=== PATIENT | male | born 1965 | race Caucasian/White ===

== ENCOUNTER 2020-01-14 16:32 | Inpatient (IN) | payer OTHER, SELFPAY ==
--- NOTE | ~2020-01-14 | XR_ITS ---
EXAMINATION: XR chest 2V EXAM DATE: 01/14/2020 16:58 INDICATION: Midsternal chest pain. TECHNIQUE: Frontal and lateral projections of the chest obtained and reviewed. There is no prior zo dy for comparison. FINDINGS: The lungs are clear. There are no pleural effusions. The cardiomediastinal silhouette is within normal limits. There is no pneumothorax suspected. The bones and soft tissues are unremarkab le. IMPRESSION: No acute cardiopulmonary findings. Reviewed, dictated and finalized at location A.
[2020-01-14 16:29] VITALS: BP 151/69; PULSE 94; RESP 16; O2SAT 98
--- NOTE | 2020-01-14 16:38 | ECG_ITS ---
Measurements Intervals [place] Rate: 105 P: [place]: 0 QRS: 42 QRSD: 93 T: 31 QT: 337 QTc: 447 Interpretive Statements SINUS RHYTHM ATRIAL COUPLETS AND FREQUENT VENTRICULAR PREMATURE COMPLEXES ABNORMAL ECG Electronically Signed On 01-14-2020 16:41:13 CDT by Jhony Nolasco D.O.
[2020-01-14 16:48] LABS: Basophils Percent Auto 0.3 % (0.2-1.2); Eosinophils Absolute Auto 0.2 K/mm3 (0-0.3); Eosinophils Percent Auto 2.3 % (0-4.4); Hematocrit 44.4 % (42.0-52.0); Hemoglobin 14.8 g/dL (14.0-18.0); Immature Granulocyte Absolute 0.01 K/mm3 (0.00-0.031); Immature Granulocyte Percent A 0.1 % (0-0.5); Lymphocytes Absolute Auto 1.49 K/mm3 (0.9-3.2); Lymphocytes Percent Auto 21.9 % (18.3-44.2); Mean Corpuscular HGB Conc 33.3 g/dl (32-36); Mean Corpuscular Hemoglobin 29.2 pg (26-34); Mean Corpuscular Volume 87.7 fl (80-100); Mean Platelet Volume 10.3 fl (7.4-10.4); Monocytes Absolute Auto 0.5 K/mm3 (0.1-0.6); Monocytes Percent Auto 6.9 % (2.6-8.5); Neutrophils Absolute Auto 4.7 K/mm3 (1.3-6.7); Neutrophils Percent Auto 68.5 % (45.5-73.1); Platelet Count Result 212 k/mm3 (150-375); Red Blood Count 5.06 M/mm3 (4.6-6.20); Red Cell Distribution Width 12.4 % (11.5-14.5); White Blood Count 6.8 K/mm3 (4.5-10.0)
[2020-01-14 16:57] LABS: INR 0.9; Prothrombin Time 12.2 Seconds (11.1-14.7)
[2020-01-14 16:58] LABS: Partial Thromboplastin Time 25.3 SECONDS (22.3-36.8)
[2020-01-14 17:00] LABS: Blood Urea Nitrogen 18 mg/dL (9-20); Calcium 9.2 mg/dL (8.4-10.2); Carbon Dioxide 23 mmol/L (22-30); Chloride 101 mmol/L (98-107); Estimated CRCL calculation 113 ml/min; Estimated Glomerular Filt Rate > 60; Glucose 416 mg/dL (75-110); Potassium 4.4 mmol/L (3.4-5.0); Sodium 133 mmol/L (137-145)
[2020-01-14 17:11] LABS: Troponin I < 0.012 ng/mL (0.000-0.034)
--- NOTE | 2020-01-14 17:57 | ED.CHESTPAIN ---
HPI - Chest Pain General Chief Complaint: Chest Pain Stated Complaint: Chest Pain Time Seen by Provider: 01/14/20 16:39 History of Present Illness HPI narrative: Patient presents with his for chest pain that started an hour before presentation. He points to the right sternum as the location. He had an episode of this the day prior for it lasted about an hour. He has never had chest pain other than these 2 episodes before. He is a known insulin-dependent diabetic and has hypertension. 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 He has not been sick in the last couple weeks. His appetite is good, bowels are moving, and he has nocturia 1-2 per evening. He had 4 chewable baby aspirin, and nitroglycerin in route. That brought his chest pain way down. He had no shortness of breath diaphoresis or nausea. He has no history of heart disease. Onset: during rest Pain location: substernal Pain radiation: none Severity: moderate Relieving factors: nitroglycerin Treatment prior to arrival: aspirin and nitroglycerin Risk Factors Coronary artery disease risk factors: diabetes and hypertension Related Data Home Medications Medication Instructions Recorded Confirmed Humalog U-100 Insulin See Protocol ACHS 01/14/20 insulin glargine [Lantus U-100 30 unit SUBCUT HS 01/14/20 01/14/20 Insulin] levothyroxine 175 mcg PO DAILY 01/14/20 01/14/20 lisinopril 10 mg PO HS 01/14/20 01/14/20 ropinirole 4 - 5 mg PO DAILY 01/14/20 01/14/20 rosuvastatin 10 mg PO DAILY 01/14/20 01/14/20 sertraline 100 mg PO DAILY 01/14/20 01/14/20 zolpidem 12.5 mg PO HS 01/14/20 01/14/20 Allergies Allergy/AdvReac Type Severity Reaction Status Date / Time No Known Allergies Allergy Verified 01/14/20 16:34 Review of Systems Review of Systems: Narrative: CONSTITUTIONAL: Denies fever, chills, or sweats. EYES: Denies visual changes, redness, or discharge. ENT: Denies rhinorrhea, congestion, sore throat, or otalgia. CARDIOVASCULAR: Denie, palpitations, or edema. RESPIRATORY: Denies cough or dyspnea. GASTROINTESTINAL: Denies abdominal pain, nausea, vomiting, or diarrhea. GENITOURINARY: Denies dysuria or hematuria. SKIN: Denies rash or itching. MUSCULOSKELETAL: Denies back pain, joint pain, or myalgia. NEUROLOGIC: Denies headache, numbness, or weakness. PSYCHIATRIC: Denies anxiety or depression. [facility] Past Medical History Medical History (Updated 01/14/20 @ 22:27 by Laura Merritt MD) Depression Diabetes Dupuytren's contracture of left hand With removal of nodules. Hyperglycemia Hyperlipidemia Hypothyroidism Insulin dependent diabetes mellitus Type 1 diagnosed when he was 34 years old Knee arthropathy Obstructive sleep apnea Patient does not use CPAP machine and did have an oral device at 1 time but does not use it now. Restless leg syndrome Surgical History Surgical History (Updated 01/14/20 @ 21:13 by Stacey Nuñez NP) History of arthroscopic surgery of elbow Bilaterally History of arthroscopic surgery of shoulder Bilaterally S/P arthroscopic surgery of right knee Family History Family History Other Adopted Social History Social History (Updated 01/14/20 @ 21:16 by Stacey Nuñez NP) Social History: The patient is to Henry and he has no biological children. He has 1 stepchild He smokes 1-2 cigars a day. No alcohol marijuana or illicit drugs. He is adopted so he does not know his family history. He desires to be a full code. He works for [employer]. Years smoked: 30 Smoking status: Current every day smoker Tobacco type: cigars Second hand tobacco smoke exposure: No Alcohol intake: never Substance use: never Living arrangements: with family Occupation/Education: occupation Gender identity (if verbalized by the patient): Male Spiritual care concerns: Yes Agree to blood products: Yes Exam Narrative: Exam Narrati
[2020-01-14 18:33] LABS: Glucose Point of Care 300 (65-105)
[2020-01-14] MEDS: INSULIN HUMAN REGULAR (*BKC) 100 UNITS/ML 10 UNITS SUB-Q (18:38)
[2020-01-14 19:17] VITALS: BP 116/68; PULSE 68; RESP 12; O2SAT 98
[2020-01-14] MEDS: HEPARIN SODIUM 5,000 UNITS/ML VIAL 5000 UNITS IV PUSH (19:25)
[2020-01-14 19:50] LABS: Glucose Point of Care 235 (65-105)
[2020-01-14 20:19] VITALS: BP 113/66; PULSE 65; RESP 18; O2SAT 99
[2020-01-14 20:35] VITALS: BP 131/58; PULSE 110; RESP 20; TEMP 36.8; O2SAT 100; BMI 28.0
--- NOTE | 2020-01-14 21:01 | PM.IMHP ---
H&P: HPI History of Present Illness Chief complaint: a fib RVR Narrative: Ken Adamson is a 54 year old male who has had no prior history of any heart disease or arrhythmias. The patient has diabetes type 1 and hypertension. Yesterday the patient developed chest pain on his way to work. The patient drove himself to work and had this chest pain that lasted for about an hour. It did not radiate anywhere and resolved on its own. The patient did not take any medications to resolve it. He was not diaphoretic and did not have any nausea vomiting or diarrhea. No fever or chills. No cough. 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 The patient developed chest pain again today while driving to work. He did not take any medication to resolve it and was still having chest pain when he went to work. He called the ambulance and his met him here. He does not take a daily aspirin. The patient was given 4 chewable baby aspirin and nitroglycerin EN route here. He stated that his chest pain lasted about 6 hours today. Patient was found to be in AFib with RVR. He was given Cardizem push and then a drip. Cardiology has been consulted. Heparin drip has been started. Patient converted and is still on a Cardizem drip. Troponins negative so far. Patient has occasional PVCs. Was also given insulin Humulin regular subcu was 416 and is down to 235 now. As no acute cardiopulmonary findings. Date of service 01/14/2020 Review of Systems Review of Systems: All systems reviewed & are unremarkable except as noted in HPI and below Constitutional: Constitutional: Reports as per HPI and Reports no additional constitutional complaints Eyes: Eyes: Reports as per HPI and Reports no additional eye complaints ENT: Reports system reviewed and no additional complaints, except as documented and Reports Normal hearing present Cardiovascular: Cardiovascular: Reports no additional cardiovascular complaints Respiratory: Respiratory: Reports no additional respiratory complaints and Reports no additional respiratory complaints Gastrointestinal: Gastrointestinal: Reports as per HPI and Reports no additional gastrointestinal complaints Musculoskeletal: Musculoskeletal: Reports no additional musculoskeletal complaints Integumentary/Breasts: Skin/Breast: Reports system reviewed and no additional complaints, except as docu and Reports as per HPI Neurologic: Reports system reviewed and no additional complaints, except as documented, Reports as per HPI and Reports Normal hearing present Psychiatric: Psychiatric: Reports no additional psychiatric complaints and Reports as per HPI Endocrine: Endocrine: Reports no additional endocrine complaints Hematologic/Lymphatic: Hematologic/Lymphatic: Reports no additional hematologic/lymphatic complaints Allergic/Immunologic: Allergic/Immunologic: Reports no additional allergic/immunologic complaints PMFSH Past Medical History Medical History (Updated 01/14/20 @ 21:24 by Stacey Nuñez NP) Depression Diabetes Dupuytren's contracture of left hand With removal of nodules. Hyperglycemia Hyperlipidemia Hypothyroidism Insulin dependent diabetes mellitus Type 1 diagnosed when he was 34 years old Knee arthropathy Obstructive sleep apnea Patient does not use CPAP machine and did have an oral device at 1 time but does not use it now. Restless leg syndrome Surgical History Surgical History (Updated 01/14/20 @ 21:13 by Stacey Nuñez NP) History of arthroscopic surgery of elbow Bilaterally History of arthroscopic surgery of shoulder Bilaterally S/P arthroscopic surgery of right knee Family History Family History Other Adopted Social History Social History (Updated 01/14/20 @ 21:16 by Stacey Nuñez NP) Social History: The patient is to Henry and he has no biological children. He has 1 stepchild He smokes 1-2 cigars a day.
--- NOTE | 2020-01-14 21:12 | ADMGEN ---
This patient, Ken Adamson, was admitted to IMU Room 201-01 on 01/14/2020 at 2035. Patient/family oriented to hospital policies and general routines including ID bracelet, bed and alarms, visiting hours, pain management, procedures, bathroom and other care routines, personal items, smoking policy, room service/diet, and visiting hours. Valuables list has been completed. Information on how to activate the Rapid Response Team has been discussed. Patient/Family are encouraged to report perceived risks to care and to ask questions if they do not understand what they are told or what they should do.
[2020-01-14] MEDS: HEPARIN SOD/D5W 100 UNITS/ML 25,000 UNITS/250 ML BAG 10 UNITS IV CONT (21:16)
[2020-01-14 22:00] VITALS: PULSE 90
[2020-01-14 22:05] LABS: Troponin I < 0.012 ng/mL (0.000-0.034)
[2020-01-14 23:09] LABS: Glucose Point of Care 127 (65-105)
[2020-01-14] MEDS: INSULIN GLARGINE (*BKC) 100 UNITS/ML 15 UNITS SUB-Q (23:10)
[2020-01-14] MEDS: lisinopriL 10 MG TABLET PO (23:11)
[2020-01-14] MEDS: DILTIAZEM HCL 30 MG TABLET PO (23:12)
[2020-01-15] VITALS (9 sets, daily range): BP systolic 93–122; BP diastolic 46–60; PULSE 62–88; RESP 16–18; TEMP 36.1–36.9; O2SAT 98–100
--- NOTE | 2020-01-15 | EST_ITS ---
Patient Info Name: Ken Adamson Age: 54 years : 1965 Gender: Male Ht: 72 in Wt: 215 lbs BSA: 2.25 m2 HR: 66 bpm BP: 124 / 86 mmHg Exam Date: 01/15/2020 11:04 AM Exam Location: [facility] Patient Status: Inpatient Admit Date: 01/14/2020 Staff Ordering Physician: Han Lopez MD Bindery Machine Tender: Liyah Beckman RDCS Attending Provider: Ajit Moreno MD Exercise Technologist: Rusty Cid RDCS, RT Exercise Physician: Scar Powers MD Exam Type: CA stress echo Study Info Indications I10 - Essential (primary) hypertension R07.89 - Other chest pain Treadmill exercise stress echocardiogram is performed. Summary 1. Left ventricular systolic function is normal with an estimated ejection fraction of 5560 % at rest. 2. Normal augmentation of all wall segments without evidence of ischemia with stress. 3. Negative stress echocardiogram for ischemia by wall motion analysis. Stress Echo Findings Left Ventricle Left ventricular systolic function is normal with an estimated ejection fraction of 5560 % at rest. Normal augmentation of all wall segments without evidence of ischemia with stress. Ventricles Name Value Normal LV Fractional Shortening/Ejection Fraction 2D/MM Visually Estimated EF 5,560 % 52-72 Protocol: [place] Stress ECG Details Stage: REST Duration (min): --- Speed (mph): 0.0 Grade (%): 0 HR (bpm): 66 SBP (mmHg): 124 DBP (mmHg): 86 METS: --- Stage: REST Duration (min): --- Speed (mph): 0.0 Grade (%): 0 HR (bpm): 77 SBP (mmHg): 124 DBP (mmHg): 86 METS: --- Stage: STAGE 1 Duration (min): 1 min : 0 sec Speed (mph): 1.7 Grade (%): 10 HR (bpm): 89 SBP (mmHg): 124 DBP (mmHg): 86 METS: --- Stage: STAGE 1 Duration (min): 2 min : 0 sec Speed (mph): 1.7 Grade (%): 10 HR (bpm): 94 SBP (mmHg): 124 DBP (mmHg): 86 METS: --- Stage: STAGE 1 Duration (min): 3 min : 0 sec Speed (mph): 1.7 Grade (%): 10 HR (bpm): 98 SBP (mmHg): 119 DBP (mmHg): 45 METS: --- Stage: STAGE 2 Duration (min): 1 min : 0 sec Speed (mph): 2.5 Grade (%): 12 HR (bpm): 102 SBP (mmHg): 119 DBP (mmHg): 45 METS: --- Stage: STAGE 2 Duration (min): 2 min : 0 sec Speed (mph): 2.5 Grade (%): 12 HR (bpm): 107 SBP (mmHg): 146 DBP (mmHg): 54 METS: --- Stage: STAGE 2 Duration (min): 3 min : 0 sec Speed (mph): 2.5 Grade (%): 12 HR (bpm): 112 SBP (mmHg): 146 DBP (mmHg): 54 METS: --- Stage: STAGE 3 Duration (min): 1 min : 0 sec Speed (mph): 3.4 Grade (%): 14 HR (bpm): 120 SBP (mmHg): 167 DBP (mmHg): 103 METS: --- Stage: STAGE 3 Duration (min):
[2020-01-15] MEDS: ZOLPIDEM TARTRATE 5 MG TABLET 10 MG PO (00:18)
[2020-01-15 01:04] LABS: Troponin I < 0.012 ng/mL (0.000-0.034)
[2020-01-15 03:26] LABS: Basophils Percent Auto 0.3 % (0.2-1.2); Eosinophils Absolute Auto 0.2 K/mm3 (0-0.3); Eosinophils Percent Auto 3.3 % (0-4.4); Hematocrit 41.1 % (42.0-52.0); Hemoglobin 13.8 g/dL (14.0-18.0); Immature Granulocyte Absolute 0.01 K/mm3 (0.00-0.031); Immature Granulocyte Percent A 0.2 % (0-0.5); Lymphocytes Absolute Auto 2.31 K/mm3 (0.9-3.2); Lymphocytes Percent Auto 39.9 % (18.3-44.2); Mean Corpuscular HGB Conc 33.6 g/dl (32-36); Mean Corpuscular Hemoglobin 29.4 pg (26-34); Mean Corpuscular Volume 87.4 fl (80-100); Monocytes Absolute Auto 0.4 K/mm3 (0.1-0.6); Monocytes Percent Auto 6.9 % (2.6-8.5); Neutrophils Absolute Auto 2.9 K/mm3 (1.3-6.7); Neutrophils Percent Auto 49.4 % (45.5-73.1); Platelet Count Result 195 k/mm3 (150-375); Red Cell Distribution Width 12.6 % (11.5-14.5); White Blood Count 5.8 K/mm3 (4.5-10.0)
[2020-01-15 03:38] LABS: Partial Thromboplastin Time 50.1 SECONDS (22.3-36.8)
[2020-01-15 03:39] LABS: Alanine Aminotransferase 25 U/L (4-50); Albumin Level 3.8 g/dL (3.5-5.1); Alkaline Phosphatase 55 U/L (38-126); Aspartate Amino Transferase 22 U/L (17-59); Bilirubin,Total 0.5 mg/dL (0.2-1.3); Blood Urea Nitrogen 21 mg/dL (9-20); Calcium 8.8 mg/dL (8.4-10.2); Carbon Dioxide 30 mmol/L (22-30); Chloride 104 mmol/L (98-107); Estimated CRCL calculation 100 ml/min; Estimated Glomerular Filt Rate > 60; Glucose 113 mg/dL (75-110); Magnesium 1.9 mg/dL (1.6-2.3); Potassium 4.1 mmol/L (3.4-5.0); Sodium 138 mmol/L (137-145)
[2020-01-15 03:42] LABS: Hemoglobin A1C 8.5 % (<5.7)
[2020-01-15] MEDS: HEPARIN SODIUM 5,000 UNITS/ML VIAL 4000 UNITS IV PUSH (04:04)
[2020-01-15 06:06] LABS: Free T4 Free Thyroxine Reflex 1.12 ng/dL (0.78-2.19)
[2020-01-15] MEDS: LEVOTHYROXINE SODIUM 75 MCG TABLET PO (06:26)
[2020-01-15] MEDS: LEVOTHYROXINE SODIUM 100 MCG TABLET PO (06:26)
[2020-01-15] MEDS: DILTIAZEM HCL 30 MG TABLET PO ×2 (06:27→12:24)
[2020-01-15 07:53] LABS: Glucose Point of Care 113 (65-105)
[2020-01-15] MEDS: ROSUVASTATIN 10 MG TABLET PO (09:07)
[2020-01-15 10:33] LABS: Partial Thromboplastin Time 126.6 SECONDS (22.3-36.8)
--- NOTE | 2020-01-15 11:46 | PM.CNCAR ---
Assessment and Plan Assessment and plan (1) Diabetes: Qualifiers: Diabetes mellitus complication status: without complication Diabetes mellitus type: type 1 Qualified Code(s): E10.9 - Type 1 diabetes mellitus without complications Code(s): E11.9 - Type 2 diabetes mellitus without complications Status: Acute Assessment and Plan: not optimally controlled (HgbA1c 8.5, glucose> 400 yesterday) management per PC (2) Chest pain: Code(s): R07.9 - Chest pain, unspecified Status: Acute Assessment and Plan: Appears atypical 3 sets of CE negative no acute EKG changes pt underwent stress test today which was negative cont medical management and risk factor modification (3) Hyperlipidemia: Code(s): E78.5 - Hyperlipidemia, unspecified Status: Chronic Assessment and Plan: cont statin (4) Arrhythmia, atrial: Code(s): I49.8 - Other specified cardiac arrhythmias Status: Acute Assessment and Plan: EKG was reviewed pt remains in NSR yesterday had episode of NSR with frequent PACs which resolved probably due to dyselectrolitemia in setting of poorly controlled diabetes cont Cardizem (5) Hypertension: Code(s): I10 - Essential (primary) hypertension Status: Acute Assessment and Plan: pt has good physical tolerance with hypertensive response to exercise will cont Cardizem 120 QD switch Lisinopril for Cozaar low Na diet Pt appears stable from cardiac standpoint Disposition per PC fu in clinic in one week History of Present Illness History of Present Illness Consult date/time: 01/15/20 Mr. Adamson is a pleasant 54 y/o WM with PMH of DM, HTN, HLD, YANELY, restless leg syndrome who presented last [facility] to [facility] since he had some chest discomfort. According to pt and ER note pt experienced yesterday chest discomofort on R side of chest. he denied palpitations or syncopal episodes. States that walk a lot a work and noticed some DAVILA. he wears N95 mask for protection. pt had initial evaluation in ER and thought to have AFIB. Was started on Cardizem and Heparin drip. Subsequently admitted to telemetry floor. pt had CE done as well as EKG which were negative for acute changes. He states that never had cardiac problems. Has stress test 15 yrs ago which was negative. pt was seen and examined, chart was reviewed, case d/w pt's nurse. Reason For Visit: a fib RVR Review of Systems Review of Systems: All systems reviewed & are unremarkable except as noted in HPI and below Constitutional: Constitutional: Reports as per HPI Eyes: Eyes: Reports as per HPI ENT: Reports system reviewed and no additional complaints, except as documented and Reports as per HPI Cardiovascular: Cardiovascular: Reports as per HPI Respiratory: Respiratory: Reports as per HPI Gastrointestinal: Gastrointestinal: Reports as per HPI Genitourinary: Genitourinary: Reports as per HPI Musculoskeletal: Musculoskeletal: Reports as per HPI [facility] Past Medical History Medical History (Updated 01/15/20 @ 11:52 by Scar Powers MD) Depression Diabetes Dupuytren's contracture of left hand With removal of nodules. Hyperglycemia Hyperlipidemia Hypothyroidism Insulin dependent diabetes mellitus Type 1 diagnosed when he was 34 years old Knee arthropathy Obstructive sleep apnea Patient does not use CPAP machine and did have an oral device at 1 time but does not use it now. Restless leg syndrome Surgical History Surgical History (Updated 01/14/20 @ 21:13 by Stacey Nuñez NP) History of arthroscopic surgery of elbow Bilaterally History of arthroscopic surgery of shoulder Bilaterally S/P arthroscopic surgery of right knee Family History Family History Other Adopted Social History Social History (Updated 01/14/20 @ 21:16 by Stacey Nuñez NP) Social History: The patient is
[2020-01-15 12:17] LABS: Total Triiodothyronine (T3) 0.94 NG/ML (0.97-1.69)
[2020-01-15] MEDS: MAGNESIUM OXIDE 400 MG TABLET PO (12:37)
[2020-01-15 12:52] LABS: Glucose Point of Care 190 (65-105)
--- NOTE | 2020-01-16 17:11 | PM.DS ---
DS: Diagnosis Admitting Diagnosis Admitting Diagnosis: Chest pain, unspecified Discharge Diagnosis (1) Chest pain: Code(s): R07.9 - Chest pain, unspecified Status: Acute Assessment and Plan: Cardiology has been consulted. troponins were negative. Patient had relief with nitro an aspirin but stress echo revealed no ischemia. (2) Atrial fibrillation with rapid ventricular response: Code(s): I48.91 - Unspecified atrial fibrillation Status: Acute Assessment and Plan: Initially felt to be AFib but on further evaluation by Cardiology there was frequent PACs and sinus rhythm. No anticoagulation needed just ASA (3) Insulin dependent diabetes mellitus: Status: Chronic Assessment and Plan: He has type 1 diabetes and he is routinely on insulin. He is on Lantus at night will do a sliding scale insulin. Continue same at home (4) Hyperlipidemia: Code(s): E78.5 - Hyperlipidemia, unspecified Status: Chronic Assessment and Plan: Continue with rosuvastatin (5) Depression: Code(s): F32.9 - Major depressive disorder, single episode, unspecified Status: Chronic Assessment and Plan: Continue with sertraline (6) Obstructive sleep apnea: Code(s): G47.33 - Obstructive sleep apnea (adult) (pediatric) Status: Chronic Assessment and Plan: Patient said that he had an oral apparatus but stopped using it. (7) Restless leg syndrome: Code(s): G25.81 - Restless legs syndrome Status: Chronic Assessment and Plan: With ropinirole (8) Hypertension: Code(s): I10 - Essential (primary) hypertension Status: Acute Assessment and Plan: Cardiology changed to diltiazem 120 daily with losartan 25 daily (9) Hypothyroidism: Code(s): E03.9 - Hypothyroidism, unspecified Status: Chronic Assessment and Plan: continue with his levothyroxine., TSH 6.8 and may need adjustment of bed by primary care DS: Summary Hospital Course Hospital Course: [age] year old hypertensive diabetic admitted with chest discomfort. Initially was felt be in atrial fibrillation but further evaluation of rhythm strips and EKG revealed only frequent PACs. Troponins were negative and patient underwent stress echo test per Cardiology which revealed no ischemia. Was discharged home on low-dose diltiazem 120 daily with losartan 25 daily to follow-up with cardiology in 1 week. Estimated at ejection fraction at stress echo 55-60% Time Spent with Patient Time attestation: Total time spent providing and/or coordinating discharge services: 35 minutes Exam Narrative: Exam Narrative: Condition on discharge Blood pressure 100/50 pulse is 80 regular saturating 100% on room air Lungs clear CV no murmurs regular Abdomen soft nontender Extremities without edema distal pulses are 2+ Neuro alert pleasant cooperative no focal deficits Discharge Plan Discharge Attending physician on discharge: Art Tian Consulting providers: Han Lopez Discharging Clinician: Art Tian Patient Disposition: Home, Self-Care Activity: as tolerated Diet: diabetic and low sodium Patient Instructions: Antibiotic Form, Diltiazem (By mouth), Losartan (By mouth), How to Stop Smoking (DC) Stand Alone Forms: General Discharge Information Follow-up/Referrals: Scar Powers MD [Physician] - 1 Week Discharge Medications: New aspirin 81 mg Tablet,Delayed Release (Dr/Ec) 81 mg PO QAM Qty: 30 RF: 0 diltiazem HCl 120 mg Capsule,Extended Release 24 Hr 120 mg PO QAM Qty: 30 RF: 0 losartan 25 mg Tablet 25 mg PO QAM Qty: 30 RF: 0 Continued levothyroxine 175 mcg Tablet 175 mcg PO DAILY RF: 0 ropinirole 1 mg Tablet 4 - 5 mg PO DAILY RF: 0 Lantus U-100 Insulin 100 unit/mL Solution 30 unit SUBCUT HS RF: 0 sertraline 100 mg Tablet 100 mg PO DAILY RF: 0 zolpidem 12.5 mg
== END 2020-01-15 13:55 | disposition home or self-care (01) | DRG 309 ==
LOC: ANHED 19:23 → ANHIMU 21:14
PROVIDERS: Nurse Practitioner; Specialist; Admitting Provider Family Medicine; Emergency Provider Emergency Medicine; Visit Provider Internal Medicine
DX: I48.91 Unspecified atrial fibrillation (principal); E87.1 Hypo-osmolality and hyponatremia; E78.5 Hyperlipidemia, unspecified; F32.9 Major depressive disorder, single episode, unspecified; G47.33 Obstructive sleep apnea (adult) (pediatric); G25.81 Restless legs syndrome; E03.9 Hypothyroidism, unspecified; I10 Essential (primary) hypertension; E10.65 Type 1 diabetes mellitus with hyperglycemia; M12.9 Arthropathy, unspecified
CPT/HCPCS: 36415; 71046; 80048; 80053; 82948; 83036; 83735; 84439; 84443; 84480; 84484; 85025; 85610; 85730; 93005; 93351; 96365; 96366; 96375; 99291; A9270; J1644; J1815

== ENCOUNTER 2020-01-18 13:42 | Emergency (ER) | payer OTHER, SELFPAY ==
--- NOTE | ~2020-01-18 | XR_ITS ---
EXAMINATION: XR chest 2V DATE: 01/18/2020 14:18 INDICATION: Chest pain. Atrial fibrillation. TECHNIQUE: Frontal and lateral views of the chest were obtained. COMPARISON: Chest 2 views 01/14/2020 FINDINGS: The chest demonstrates clear lungs without pneumonia, pleural effusion, or pneumothorax. Th e heart size is normal. IMPRESSION: 1. No acute cardiopulmonary disease. Reviewed, dictated and finalized at location A.
--- NOTE | 2020-01-18 13:43 | ECG_ITS ---
Measurements Intervals [place] Rate: 82 P: 51 OR: 168 QRS: 30 QRSD: 86 T: 33 QT: 367 QTc: 431 Interpretive Statements SINUS RHYTHM BASELINE ARTIFACT- I, II, III, AVR, AVL, AVF BORDERLINE ECG Electronically Signed On 01-18-2020 14:06:46 CDT by Jhony Nolasco D.O.
[2020-01-18 13:46] VITALS: BP 160/94; PULSE 83; RESP 13; TEMP 36.6; O2SAT 100
[2020-01-18 14:02] LABS: Basophils Percent Auto 0.4 % (0.2-1.2); Eosinophils Absolute Auto 0.1 K/mm3 (0-0.3); Eosinophils Percent Auto 2.7 % (0-4.4); Hematocrit 42.2 % (42.0-52.0); Hemoglobin 14.2 g/dL (14.0-18.0); Immature Granulocyte Absolute 0.01 K/mm3 (0.00-0.031); Immature Granulocyte Percent A 0.2 % (0-0.5); Lymphocytes Absolute Auto 1.16 K/mm3 (0.9-3.2); Lymphocytes Percent Auto 22.5 % (18.3-44.2); Mean Corpuscular HGB Conc 33.6 g/dl (32-36); Mean Corpuscular Hemoglobin 29.5 pg (26-34); Mean Corpuscular Volume 87.6 fl (80-100); Mean Platelet Volume 10.3 fl (7.4-10.4); Monocytes Absolute Auto 0.3 K/mm3 (0.1-0.6); Monocytes Percent Auto 6.2 % (2.6-8.5); Neutrophils Absolute Auto 3.5 K/mm3 (1.3-6.7); Platelet Count Result 204 k/mm3 (150-375); Red Blood Count 4.82 M/mm3 (4.6-6.20); Red Cell Distribution Width 12.4 % (11.5-14.5); White Blood Count 5.2 K/mm3 (4.5-10.0)
[2020-01-18 14:11] LABS: INR 0.9; Partial Thromboplastin Time 24.4 SECONDS (22.3-36.8); Prothrombin Time 12.1 Seconds (11.1-14.7)
--- NOTE | 2020-01-18 14:13 | ED.CHESTPAIN ---
HPI - Chest Pain General Chief Complaint: Chest Pain Stated Complaint: AFIB Time Seen by Provider: 01/18/20 13:57 History of Present Illness HPI narrative: Patient presents for intermittent chest pain and palpitations with shortness of breath. He was diagnosed last week for the first time with A. fib rapid ventricular rate. He was admitted at the time on a diltiazem drip. Since he has been home he has intermittent episodes of shortness of breath either at rest, or after cutting grass. Episodes last minutes to quarter of an hour. Some have chest pain midsternal, mild. He has no cough fever or chills. He was discharged on diltiazem for rate, and aspirin for blood thinning. MD complaint: chest pain Onset (ago): day(s) Timing of current episode: episodic Prior episodes: Yes Onset: during rest and during exertion Pain location: substernal Pain radiation: none Severity: mild Quality: dull Relieving factors: rest Exacerbating factors: exertion Context: new medications Associated symptoms: dyspnea and palpitations Treatment prior to arrival: none Risk Factors Coronary artery disease risk factors: diabetes, smoking history, hyperlipidemia and hypertension Related Data Home Medications Medication Instructions Recorded Confirmed Humalog U-100 Insulin See Rx Instructions .ROUTE .COMPLEX 01/14/20 01/14/20 Lantus U-100 Insulin 30 unit SUBCUT HS 01/14/20 01/14/20 levothyroxine 175 mcg PO DAILY 01/14/20 01/14/20 ropinirole 4 - 5 mg PO DAILY 01/14/20 01/14/20 rosuvastatin 10 mg PO DAILY 01/14/20 01/14/20 sertraline 100 mg PO DAILY 01/14/20 01/14/20 zolpidem 12.5 mg PO HS 01/14/20 01/14/20 Allergies Allergy/AdvReac Type Severity Reaction Status Date / Time No Known Allergies Allergy Verified 01/14/20 16:34 Review of Systems Review of Systems: Narrative: CONSTITUTIONAL: Denies fever, chills, or sweats. EYES: Denies visual changes, redness, or discharge. ENT: Denies rhinorrhea, congestion, sore throat, or otalgia. CARDIOVASCULAR: Denies edema. RESPIRATORY: Denies cough GASTROINTESTINAL: Denies abdominal pain, nausea, vomiting, or diarrhea. GENITOURINARY: Denies dysuria or hematuria. SKIN: Denies rash or itching. MUSCULOSKELETAL: Denies back pain, joint pain, or myalgia. NEUROLOGIC: Denies headache, numbness, or weakness. PSYCHIATRIC: Denies anxiety or depression. All systems reviewed & are unremarkable except as noted in HPI and below PMFSH Past Medical History Medical History Depression Diabetes Dupuytren's contracture of left hand With removal of nodules. Hyperglycemia Hyperlipidemia Hypothyroidism Insulin dependent diabetes mellitus Type 1 diagnosed when he was 34 years old Knee arthropathy Obstructive sleep apnea Patient does not use CPAP machine and did have an oral device at 1 time but does not use it now. Restless leg syndrome Surgical History Surgical History History of arthroscopic surgery of elbow Bilaterally History of arthroscopic surgery of shoulder Bilaterally S/P arthroscopic surgery of right knee Social History Social History Social History: The patient is to Henry and he has no biological children. He has 1 stepchild He smokes 1-2 cigars a day. No alcohol marijuana or illicit drugs. He is adopted so he does not know his family history. He desires to be a full code. He works for [employer]. Years smoked: 30 Smoking status: Current every day smoker Tobacco type: cigars Second hand tobacco smoke exposure: No Alcohol intake: never Substance use: never Gender identity (if verbalized by the patient): Male Spiritual care concerns: Yes Agree to blood products: Yes Exam Narrative: Exam Narrative: GENERAL: Well-appearing, well-nourished, and in no acute distress.Long curved mustache. HEAD: Normocepha
[2020-01-18 14:14] LABS: Blood Urea Nitrogen 17 mg/dL (9-20); Calcium 9.6 mg/dL (8.4-10.2); Carbon Dioxide 30 mmol/L (22-30); Chloride 97 mmol/L (98-107); Estimated CRCL calculation 113 ml/min; Estimated Glomerular Filt Rate > 60; Glucose 414 mg/dL (75-110); Sodium 133 mmol/L (137-145)
[2020-01-18 14:25] LABS: Troponin I < 0.012 ng/mL (0.000-0.034)
[2020-01-18 14:27] LABS: Potassium 4.7 mmol/L (3.4-5.0)
[2020-01-18 14:39] LABS: Alveolar/Arterial O2 Gradient 20.5 mmHg; Base Excess ABG 0.6 mEq/l (+/-2.0); Fractional Inspired Oxygen 21 %; HCO3 ABG 24.3 mEq/l (22.0-26.0); Oxygen Content ABG 18.2 %vol (16.0-22.0); Oxyhemoglobin 95.5 % THb (90.0-100.0); PCO2 ABG 35.8 mmHg (35.0-45.0); PO2 ABG 86.4 mmHg (80.0-100.0); PO2 FiO2 Ratio Arterial Blood 4.11 %; Site Drawn RIGHT RADIAL; Total Hemoglobin 13.5 g/dL (12.0-18.0); pH ABG 7.449 (7.350-7.450)
[2020-01-18 14:40] LABS: Device ROOM AIR; Modified Allen's Test Pass
[2020-01-18 15:04] VITALS: BP 136/68; PULSE 77; RESP 26; O2SAT 98
[2020-01-18 19:03] LABS: Glucose Point of Care 405 (65-105)
== END 2020-01-18 15:05 | disposition home or self-care (01) ==
PROVIDERS: Emergency Medicine; Emergency Provider Emergency Medicine
DX: I48.91 Unspecified atrial fibrillation (principal); R00.2 Palpitations; E10.65 Type 1 diabetes mellitus with hyperglycemia; F32.9 Major depressive disorder, single episode, unspecified; E78.5 Hyperlipidemia, unspecified; E03.9 Hypothyroidism, unspecified; G47.33 Obstructive sleep apnea (adult) (pediatric); G25.81 Restless legs syndrome; F17.290 Nicotine dependence, other tobacco product, uncomplicated; R94.31 Abnormal electrocardiogram [ECG] [EKG]; Z79.4 Long term (current) use of insulin
CPT/HCPCS: 36415; 36600; 71046; 80048; 82805; 84484; 85025; 85610; 85730; 93005; 99284

== ENCOUNTER 2020-01-19 14:23 | Emergency (ER) | payer OTHER, SELFPAY ==
--- NOTE | ~2020-01-19 | XR_ITS ---
EXAMINATION: XR chest 2V 01/19/2020 14:58 INDICATION: Bilateral breast pain PROCEDURE: 2 view chest COMPARISON: 01/18/2020 FINDINGS: The lungs are clear. The cardiomediastinal silhouette is within normal limits. There are no pleural effusions. There is no pneumothorax suspected. IMPRESSION: 1: NO ACUTE CARDIOPULMONARY DISEASE. Reviewed, dictated and finalized at location A.
[2020-01-19 14:29] VITALS: PULSE 81; RESP 17; TEMP 36.6; O2SAT 100
--- NOTE | 2020-01-19 14:29 | ECG_ITS ---
Measurements Intervals [place] Rate: 79 P: [place]: 0 QRS: 41 QRSD: 89 T: 38 QT: 377 QTc: 433 Interpretive Statements SINUS RHYTHM VENTRICULAR COUPLET AND VENTRICULAR BIGEMINY ABNORMAL ECG Electronically Signed On 01-19-2020 15:57:05 CDT by Jhony Nolasco D.O.
[2020-01-19 14:32] VITALS: PULSE 81
--- NOTE | 2020-01-19 14:39 | ED.GENADULT ---
HPI - General Adult General Chief complaint: Chest Pain Stated complaint: chest pain, sob Time Seen by Provider: 01/19/20 14:25 Source: patient Mode of arrival: ambulatory Limitations: no limitations History of Present Illness HPI narrative: Patient is a 54-year-old male with a history of atrial fibrillation, anticoagulated on aspirin, who presents for evaluation of chest pain and shortness of breath. Patient reports onset of chest pain approximately 1 hour ago while the patient was sitting down. Patient states chest pain is over the right side of his chest, no radiation of the pain to the back, jaw or shoulder. Patient reports associated lightheadedness and dizziness as well as palpitations. No nausea, vomiting. No back pain, no ripping or tearing sensation to the flank. Patient reports dyspnea with exertion. He denies cough, rhinorrhea. Patient has been compliant with his medications. He follows with Dr. Powers, cardiology in [place]. Related Data Home Medications Medication Instructions Recorded Confirmed Humalog U-100 Insulin See Rx Instructions .ROUTE .COMPLEX 01/14/20 01/14/20 Lantus U-100 Insulin 30 unit SUBCUT HS 01/14/20 01/14/20 levothyroxine 175 mcg PO DAILY 01/14/20 01/14/20 ropinirole 4 - 5 mg PO DAILY 01/14/20 01/14/20 rosuvastatin 10 mg PO DAILY 01/14/20 01/14/20 sertraline 100 mg PO DAILY 01/14/20 01/14/20 zolpidem 12.5 mg PO HS 01/14/20 01/14/20 Allergies Allergy/AdvReac Type Severity Reaction Status Date / Time No Known Allergies Allergy Verified 01/19/20 14:32 Review of Systems Review of Systems: Narrative: CONSTITUTIONAL: Denies fever, chills, or sweats. EYES: Denies visual changes, redness, or discharge. ENT: Denies rhinorrhea, congestion, sore throat, or otalgia. CARDIOVASCULAR: Reports chest pain, palpitations, no lower extremity edema RESPIRATORY: Denies cough, reports shortness of breath GASTROINTESTINAL: Denies abdominal pain, nausea, vomiting, or diarrhea. GENITOURINARY: Denies dysuria or hematuria. SKIN: Denies rash or itching. MUSCULOSKELETAL: Denies back pain, joint pain, or myalgia. NEUROLOGIC: Denies headache, numbness, or weakness. PMFSH Past Medical History Medical History Depression Diabetes Dupuytren's contracture of left hand With removal of nodules. Hyperglycemia Hyperlipidemia Hypothyroidism Insulin dependent diabetes mellitus Type 1 diagnosed when he was 34 years old Knee arthropathy Obstructive sleep apnea Patient does not use CPAP machine and did have an oral device at 1 time but does not use it now. Restless leg syndrome Surgical History Surgical History History of arthroscopic surgery of elbow Bilaterally History of arthroscopic surgery of shoulder Bilaterally S/P arthroscopic surgery of right knee Family History Family History Other Adopted Social History Social History Social History: The patient is to [facility] and he has no biological children. He has 1 stepchild He smokes 1-2 cigars a day. No alcohol marijuana or illicit drugs. He is adopted so he does not know his family history. He desires to be a full code. He works for [employer]. Years smoked: 30 Smoking status: Current every day smoker Tobacco type: cigars Second hand tobacco smoke exposure: No Alcohol intake: never Substance use: never Gender identity (if verbalized by the patient): Male Spiritual care concerns: Yes Agree to blood products: Yes Exam Narrative: Exam Narrative: GENERAL: Awake, alert, conversant HEAD: Normocephalic, atraumatic. EYES: PERRLA and EOMI. ENT: Nares clear, no rhinorrhea or epistaxis. Mucous membranes moist. NECK: Supple. CHEST: Mild chest wall tenderness over the left chest wall. No respirato
[2020-01-19 14:43] LABS: Basophils Percent Auto 0.6 % (0.2-1.2); Eosinophils Absolute Auto 0.2 K/mm3 (0-0.3); Eosinophils Percent Auto 3.3 % (0-4.4); Hemoglobin 15.6 g/dL (14.0-18.0); Immature Granulocyte Absolute 0.01 K/mm3 (0.00-0.031); Immature Granulocyte Percent A 0.1 % (0-0.5); Lymphocytes Absolute Auto 1.81 K/mm3 (0.9-3.2); Lymphocytes Percent Auto 27.1 % (18.3-44.2); Mean Corpuscular HGB Conc 33.9 g/dl (32-36); Mean Corpuscular Hemoglobin 29.6 pg (26-34); Mean Corpuscular Volume 87.3 fl (80-100); Mean Platelet Volume 10.3 fl (7.4-10.4); Monocytes Absolute Auto 0.5 K/mm3 (0.1-0.6); Monocytes Percent Auto 6.9 % (2.6-8.5); Neutrophils Absolute Auto 4.1 K/mm3 (1.3-6.7); Platelet Count Result 241 k/mm3 (150-375); Red Blood Count 5.27 M/mm3 (4.6-6.20); Red Cell Distribution Width 12.5 % (11.5-14.5); White Blood Count 6.7 K/mm3 (4.5-10.0)
[2020-01-19 14:50] LABS: INR 0.9; Prothrombin Time 11.9 Seconds (11.1-14.7)
[2020-01-19 14:51] LABS: Partial Thromboplastin Time 26.1 SECONDS (22.3-36.8)
[2020-01-19] MEDS: ASPIRIN 81 MG CHEWABLE TABLET 324 MG PO (14:56)
[2020-01-19 14:57] VITALS: BP 156/86; PULSE 76; RESP 14; O2SAT 96
[2020-01-19 15:03] LABS: Troponin I < 0.012 ng/mL (0.000-0.034)
[2020-01-19 15:16] LABS: Carbon Dioxide 30 mmol/L (22-30); Estimated CRCL calculation 100 ml/min; Estimated Glomerular Filt Rate > 60
[2020-01-19 15:24] LABS: Blood Urea Nitrogen 18 mg/dL (9-20); Calcium 9.7 mg/dL (8.4-10.2); Chloride 101 mmol/L (98-107); Glucose 112 mg/dL (75-110); Potassium 3.8 mmol/L (3.4-5.0); Sodium 137 mmol/L (137-145)
[2020-01-19 15:27] LABS: D Dimer 0.27 ug/mL (<0.48)
[2020-01-19 15:29] LABS: NT Pro B Type Natriuretic Pept 44 PG/ML (5-100)
[2020-01-19 18:07] LABS: Troponin I < 0.012 ng/mL (0.000-0.034)
--- NOTE | 2020-01-19 18:34 | PC.NURSE ---
Morphine, Zofran, IV fluids not given. Due to IT error, no orders crossed on EHR or to MAR. ED staff unaware of IT issue, EDP was unaware to verbalized order to RN for medication administration. No doses required at time of discharge for patient.
[2020-01-19 18:36] VITALS: BP 126/88; PULSE 93; RESP 18; O2SAT 99
== END 2020-01-19 18:37 | disposition home or self-care (01) ==
PROVIDERS: Emergency Provider Emergency Medicine
DX: R07.89 Other chest pain (principal); I48.91 Unspecified atrial fibrillation; E10.9 Type 1 diabetes mellitus without complications; F32.9 Major depressive disorder, single episode, unspecified; Z79.4 Long term (current) use of insulin; E78.5 Hyperlipidemia, unspecified; G25.81 Restless legs syndrome; R06.02 Shortness of breath
CPT/HCPCS: 36415; 71046; 80048; 83880; 84484; 85025; 85380; 85610; 85730; 93005; 99284; A9270

== ENCOUNTER 2020-01-22 16:37 | Emergency (ER) | payer OTHER, SELFPAY ==
[2020-01-22] VITALS (7 sets, daily range): BP systolic 122–152; BP diastolic 76–82; PULSE 85–96; RESP 17–20; TEMP 36.7–37.2; O2SAT 98–100
--- NOTE | ~2020-01-22 | XR_ITS ---
EXAMINATION: XR chest 2V 01/22/2020 17:21 INDICATION: Left-sided chest pain PROCEDURE: 2 view chest COMPARISON: 01/19/2020 FINDINGS: The lungs are clear. The cardiomediastinal silhouette is within normal limits. There are no pleural effusions. There is no pneumothorax suspected. IMPRESSION: 1: NO ACUTE CARDIOPULMONARY DISEASE. Reviewed, dictated and finalized at location A.
--- NOTE | 2020-01-22 16:39 | ECG_ITS ---
Measurements Intervals [place] Rate: 87 P: [place]: 0 QRS: 48 QRSD: 104 T: 49 QT: 363 QTc: 439 Interpretive Statements SINUS RHYTHM SHORT RUNS OF ATRIAL TACHYCARDIA AND VENTRICULAR PREMATURE COMPLEXES ABNORMAL ECG Electronically Signed On 01-23-2020 7:10:31 CDT by Jhony Nolasco D.O.
[2020-01-22 17:01] LABS: Basophils Percent Auto 0.3 % (0.2-1.2); Eosinophils Absolute Auto 0.1 K/mm3 (0-0.3); Eosinophils Percent Auto 2.3 % (0-4.4); Hematocrit 39.4 % (42.0-52.0); Hemoglobin 13.8 g/dL (14.0-18.0); Immature Granulocyte Absolute 0.01 K/mm3 (0.00-0.031); Immature Granulocyte Percent A 0.2 % (0-0.5); Lymphocytes Absolute Auto 1.86 K/mm3 (0.9-3.2); Lymphocytes Percent Auto 30.4 % (18.3-44.2); Mean Corpuscular Hemoglobin 29.9 pg (26-34); Mean Corpuscular Volume 85.5 fl (80-100); Mean Platelet Volume 10.3 fl (7.4-10.4); Monocytes Absolute Auto 0.5 K/mm3 (0.1-0.6); Monocytes Percent Auto 7.5 % (2.6-8.5); Neutrophils Absolute Auto 3.6 K/mm3 (1.3-6.7); Neutrophils Percent Auto 59.3 % (45.5-73.1); Platelet Count Result 215 k/mm3 (150-375); Red Blood Count 4.61 M/mm3 (4.6-6.20); Red Cell Distribution Width 12.5 % (11.5-14.5); White Blood Count 6.1 K/mm3 (4.5-10.0)
[2020-01-22 17:12] LABS: Blood Urea Nitrogen 13 mg/dL (9-20); Calcium 9.2 mg/dL (8.4-10.2); Carbon Dioxide 26 mmol/L (22-30); Chloride 102 mmol/L (98-107); Estimated CRCL calculation 100 ml/min; Estimated Glomerular Filt Rate > 60; Glucose 356 mg/dL (75-110); Potassium 4.1 mmol/L (3.4-5.0); Sodium 134 mmol/L (137-145)
[2020-01-22 17:24] LABS: Troponin I < 0.012 ng/mL (0.000-0.034)
--- NOTE | 2020-01-22 17:29 | ED.GENADULT ---
HPI - General Adult General Chief complaint: Shortness of Breath/Dyspnea Stated complaint: SOB Time Seen by Provider: 01/22/20 16:44 History of Present Illness HPI narrative: Patient is a 54 YO male with a hx of HTN, HLD, a-fib and IDDM who comes to ED with complaints of CP and SOB. These sxs started at around noon today, constant since onset, symptoms are improving on their own. CP is described as an ache on left side of chest that is non radiating, no associated diaphoresis. Had some tingling in B hands at symptom onset that has resolved. Has had similar CP before but that was on right side. Had a negative stress test last month. Has an appt with a house visitor to establish care on Saturday. Related Data Home Medications Medication Instructions Recorded Confirmed Humalog U-100 Insulin See Rx Instructions .ROUTE .COMPLEX 01/14/20 01/14/20 Lantus U-100 Insulin 30 unit SUBCUT HS 01/14/20 01/14/20 levothyroxine 175 mcg PO DAILY 01/14/20 01/14/20 ropinirole 4 - 5 mg PO DAILY 01/14/20 01/14/20 rosuvastatin 10 mg PO DAILY 01/14/20 01/14/20 sertraline 100 mg PO DAILY 01/14/20 01/14/20 zolpidem 12.5 mg PO HS 01/14/20 01/14/20 Allergies Allergy/AdvReac Type Severity Reaction Status Date / Time No Known Allergies Allergy Verified 01/22/20 16:51 Review of Systems Review of Systems: All systems reviewed & are unremarkable except as noted in HPI and below PMFSH Past Medical History Medical History Depression Diabetes Dupuytren's contracture of left hand With removal of nodules. Hyperglycemia Hyperlipidemia Hypothyroidism Insulin dependent diabetes mellitus Type 1 diagnosed when he was 34 years old Knee arthropathy Obstructive sleep apnea Patient does not use CPAP machine and did have an oral device at 1 time but does not use it now. Restless leg syndrome Surgical History Surgical History History of arthroscopic surgery of elbow Bilaterally History of arthroscopic surgery of shoulder Bilaterally S/P arthroscopic surgery of right knee Family History Family History Other Adopted Social History Social History Social History: The patient is to [place] and he has no biological children. He has 1 stepchild He smokes 1-2 cigars a day. No alcohol marijuana or illicit drugs. He is adopted so he does not know his family history. He desires to be a full code. He works for [employer]. Years smoked: 30 Smoking status: Current every day smoker Tobacco type: cigars Second hand tobacco smoke exposure: No Alcohol intake: never Substance use: never Gender identity (if verbalized by the patient): Male Spiritual care concerns: Yes Agree to blood products: Yes Exam Const: General: cooperative, healthy appearing, well developed, alert and awake HENMT: Head: normal to inspection Neck: Neck: normal visual inspection, no lymphadenopathy and no JVD Chest: Chest palpation & inspection: normal inspection of the chest and no tenderness Resp: Effort & Inspection: normal respiratory effort, abnormal respiratory pattern and no audible wheezes Auscultation: clear to auscultation bilaterally Cardio: Jugular venous distension: no JVD Rate: regular rate Rhythm: abnormal rhythm irregularly irregular Peripheral pulses: Peripheral pulses 2+ throughout GI: Inspection: normal to inspection GI Palp: No abdominal tenderness Skin: General skin exam: normal color Neuro: General: patient oriented x3, tone normal and moves all extremities Speech: normal speech Psych: Appearance: grossly normal and well kempt Affect: normal affect Course Vital Signs Vital signs: Vital Signs Temperature 37.2 C 01/22/20 16:47 Pulse Rate 94 01/22/20 16:47 Respirator
[2020-01-22] MEDS: KETOROLAC 15 MG/ML VIAL (*BKC) IV PUSH (18:00)
[2020-01-22 19:32] LABS: Troponin I < 0.012 ng/mL (0.000-0.034)
--- NOTE | 2020-01-22 19:32 | PC.NURSE ---
Assumed care of pt at this time. report from YENI Garnica
== END 2020-01-22 20:10 | disposition home or self-care (01) ==
PROVIDERS: Emergency Medicine; Physician Assistant Medical
DX: R07.89 Other chest pain (principal); I10 Essential (primary) hypertension; E78.5 Hyperlipidemia, unspecified; I48.91 Unspecified atrial fibrillation; Z79.4 Long term (current) use of insulin; F32.9 Major depressive disorder, single episode, unspecified; E03.9 Hypothyroidism, unspecified; E10.9 Type 1 diabetes mellitus without complications; G47.33 Obstructive sleep apnea (adult) (pediatric); G25.81 Restless legs syndrome; F17.290 Nicotine dependence, other tobacco product, uncomplicated; I49.3 Ventricular premature depolarization; I47.1 Supraventricular tachycardia
CPT/HCPCS: 36415; 71046; 80048; 84484; 85025; 93005; 96374; 99284; J1885